=== PATIENT | male | born 1975 | race Caucasian/White ===

== ENCOUNTER → 2017-10-11 | Outpatient (CLI) | payer OTHER ==
--- NOTE | 2017-10-11 10:05 | XR ---
EXAM TYPE: LUMBAR SPINE X RAY SERIES COMPARISON: NONE HISTORY: Lower back pain TECHNIQUE: 4 views are submitted. FINDINGS: Alignment is anatomic. The pedicles are intact. The transverse processes are intact. There is no s pondylolysis or spondylolisthesis. Mild hypertrophic changes noted anteriorly. No compression deform ities. IMPRESSION: 1. Mild hypertrophic changes. If there is concern for disc herniation correlate with MRI.
== END ==
LOC: RADXRMAIN 09:48
PROVIDERS: ATTEND Emergency Medicine
DX: S33.5XXA Sprain of ligaments of lumbar spine, initial encounter (principal)
CPT/HCPCS: 72100

== ENCOUNTER → 2020-09-02 | Outpatient (CLI) | payer OTHER | END | disposition home or self-care (01) | LOC: LABWHC1 13:49 | PROVIDERS: ATTEND Internal Medicine | DX: Z20.828 Contact with and (suspected) exposure to other viral communicable diseases (principal) | CPT/HCPCS: U0003; C9803 ==

== ENCOUNTER 2021-05-19 21:43 | Emergency (ER) | payer OTHER ==
[2021-05-19 21:51] VITALS: RESP 18
[2021-05-19 22:31] LABS: Basophils # (A) 0.1 k/uL (0-0.2); Basophils % (A) 1 %; Eosinophils # (A) 0.2 k/uL (0-0.7); Eosinophils % (A) 2 %; HCT 50.4 % (39.0-53.0); HGB 17.3 gm/dL (13.0-17.5); Lymphocytes # (A) 1.2 k/uL (1.0-4.8); Lymphocytes % (A) 16 %; MCH 33.7 pg (25.0-35.0); MCHC 34.3 g/dL (31.0-37.0); MCV 98.3 fL (80.0-100.0); Mean Platelet Volume 7.1; Monocytes # (A) 0.4 k/uL (0-1.0); Monocytes % (A) 5 %; Neutrophils # (A) 5.5 k/uL (1.3-7.7); Neutrophils % (A) 75 %; Platelet Count 232 k/uL (150-450); RBC 5.12 m/uL (4.30-5.90); RDW 12.5 % (11.5-15.5); WBC 7.4 k/uL (3.8-10.6)
[2021-05-19 22:39] LABS: Appearance,Urine Clear (Clear); Bilirubin,Urine Negative (Negative); Blood,Urine Negative (Negative); Color,Urine Colorless; Glucose,Urine (UA) Negative (Negative); Ketones,Urine Negative (Negative); Leukocyte Esterase,Urine Negative (Negative); Nitrite,Urine Negative (Negative); Protein,Urine Negative (Negative); Specific Gravity,Urine 1.002 (1.001-1.035); Urobilinogen,Urine <2.0 mg/dL (<2.0)
[2021-05-19 22:41] LABS: ALT 30 U/L (4-49); AST 34 U/L (17-59); African American GFR (CKD) >90 (>60 ml/min/1.73 sqM); Albumin 4.8 g/dL (3.5-5.0); Alkaline Phosphatase 81 U/L (38-126); Anion Gap 13 mmol/L; Blood Urea Nitrogen 12 mg/dL (9-20); Calcium 9.8 mg/dL (8.4-10.2); Carbon Dioxide 21 mmol/L (22-30); Chloride 103 mmol/L (98-107); Glucose 96 mg/dL (74-99); Non-African American GFR(CKD) >90 (>60 ml/min/1.73 sqM); Potassium 4.2 mmol/L (3.5-5.1); Sodium 137 mmol/L (137-145); Total Bilirubin 0.4 mg/dL (0.2-1.3); Total Protein 7.7 g/dL (6.3-8.2)
[2021-05-19 22:45] LABS: Alcohol 104 mg/dL
[2021-05-19 22:49] LABS: Amphetamine Screen,Urine Not Detected (NotDetected); Barbiturate Screen,Urine Not Detected (NotDetected); Benzodiazepines Screen,Urine Not Detected (NotDetected); Cocaine Screen,Urine Not Detected (NotDetected); Methadone Screen, Urine Not Detected (NotDetected); Opiate Screen,Urine Not Detected (NotDetected); Oxycodone Screen, Urine Not Detected (NotDetected); Phencyclidine Screen,Urine Not Detected (NotDetected); Tricyclic Antidepressant,Urine Not Detected (NotDetected); Urn Cannabinoid Scrn Detected (NotDetected)
[2021-05-19 22:50] LABS: INR 0.9 (<1.2); Partial Thromboplastin Time 22.2 sec (22.0-30.0); Prothrombin Time 9.6 sec (9.0-12.0)
[2021-05-19] MEDS ORDERED: MORPHINE SULFATE 4 MG/ML SYRINGE IVP STA (23:00)
--- NOTE | 2021-05-19 23:08 | XR ---
EXAMINATION TYPE: XR chest 2V DATE OF EXAM: 05/19/2021 COMPARISON: NONE HISTORY: Fall. Pain TECHNIQUE: 2 views FINDINGS: There is small linear density left lung base. Heart and mediastinum are normal. I see no pl eural effusion or pneumothorax. There are chest leads. IMPRESSION: Mild subsegmental atelectasis left lower lobe. Normal heart.
--- NOTE | 2021-05-19 23:08 | XR ---
EXAMINATION TYPE: XR thoracic spine 2V DATE OF EXAM: 05/19/2021 COMPARISON: None HISTORY: Fell down. Pain. TECHNIQUE: 4 views Thoracic vertebra have normal spacing and alignment. Posterior elements are intact. I see no compress ion fracture. There is no evidence of paraspinal mass. IMPRESSION: Negative thoracic spine exam. No fracture.
--- NOTE | 2021-05-19 23:09 | XR ---
EXAMINATION TYPE: XR pelvis AP view DATE OF EXAM: 05/19/2021 COMPARISON: NONE HISTORY: Pain TECHNIQUE: Single view FINDINGS: Pelvic ring is intact. Proximal femurs and hip joints appear normal. Sacroiliac joints are normal. IMPRESSION: Normal pelvis exam.
--- NOTE | 2021-05-19 23:12 | CT ---
EXAMINATION TYPE: CT brain lyssa wo con DATE OF EXAM: 05/19/2021 COMPARISON: None HISTORY: fell down stairs, pain in neck CT DLP: 1236 mGycm Automated exposure control for dose reduction was used. Images obtained of the brain and cervical spine without contrast. Ventricles have normal size. There is no mass effect nor midline shift. There is no sign of intracran ial hemorrhage. The calvarium is intact. There is no evidence of cerebral edema. There is incomplete aeration of the mastoid sinuses. Sella turcica appears normal. There is some mucosal thickening right maxillary sinus. Cervical vertebra show some mild straightening. Disc spaces are normal. Posterior elements are intact . Facet joints are intact. Prevertebral soft tissues are intact. There is no evidence of a fracture. IMPRESSION: Negative CT scan of the cervical spine. Negative CT scan of the brain. Bilateral mild mastoiditis noted.
--- NOTE | 2021-05-19 23:16 | CT ---
EXAMINATION TYPE: CT facial bones wo con DATE OF EXAM: 05/19/2021 COMPARISON: None HISTORY: Fall. Pain. CT DLP: 1236 mGycm Automated exposure control for dose reduction was used. Images obtained from the bottom of the mandible to the top of the orbits with no contrast. There is some mild mucosal thickening in the right maxillary sinus. The mandibular ring appears intac t. Temporomandibular joints are intact. The zygomatic arches appear normal. Nasal bone appears intact . The orbital margins are intact. There is no evidence of orbital blowout fracture. There is no retro -orbital mass. There is some bilateral mucosal thickening in the mastoid sinuses. I see no focal bone destruction. T here is some debris in the right external auditory canal. IMPRESSION: No fracture. Bilateral mastoiditis. Right side maxillary sinusitis.
[2021-05-19] MEDS ORDERED: traMADol 50 MG STARTER PACK 3 TAB BTL PO STA (23:40)
--- NOTE | 2021-05-19 23:40 | ED ---
Trauma HPI - General Chief Complaint: Trauma Stated Complaint: Fall,head injury Time Seen by Provider: 05/19/21 21:55 Source: patient Mode of arrival: ambulatory Limitations: no limitations - History of Present Illness Initial Comments: Patient is a 45-year-old male presenting to the emergency department after falling down some stairs just prior to arrival. Patient states he was at a friend's a barn when he slipped on the top stair and fell down approximately 20- 25 wooden stairs. According to his friend, he lost consciousness for 1-5 seconds. He is not on blood thinners. Patient states he had been drinking a little bit, about 6 beers today. He is complaining of head pain mostly on his right side, as well as neck pain. He is also complaining of a little bit of mid right-sided back pain. He denies any chest pain, no shortness of breath, no abdominal pain, no nausea or vomiting. He denies any pelvic pain, no pain of his lower extremities. He states both of his shoulders and the back are a little sore but he still able to move them around. Very vision or double vision. He states his overall pain is approximately a 7/10. He denies any drug use. He has no further complaints. - Related Data Allergies Allergy/AdvReac Type Severity Reaction Status Date / Time No Known Allergies Allergy Verified 05/19/21 21:51 Review of Systems ROS Statement: Those systems with pertinent positive or pertinent negative responses have been documented in the HPI. ROS Other: All systems not noted in ROS Statement are negative. Past Medical History Past Medical History: No Reported History History of Any Multi-Drug Resistant Organisms: None Reported Additional Past Surgical History / Comment(s): ear tubes Past Psychological History: No Psychological Hx Reported Smoking Status: Current every day smoker Past Alcohol Use History: Occasional Past Drug Use History: None Reported General Exam - General Exam Comments Initial Comments: GENERAL: Patient is well-developed and well-nourished. Patient is nontoxic and in mild distress. HEAD: Patient has a hematoma noted to the right temporal area, right side of the head as well. He does have some bruising noted to the right congregational area as well. No other hematomas felt. No deformities felt. No signs of basal skull fracture. EYES: Pupils equal round and reactive to light, extraocular movements intact, sclera anicteric, conjunctiva are normal. Eyelids were unremarkable. ENT: TMs normal, nares patent, oropharynx clear without exudates. Moist mucous membranes. NECK: The collar was placed in triage, after c-collar was cleared, patient does have full active range of motion, he does have soreness at the end range. He has tenderness on cervical paraspinals. Supple without lymphadenopathy or JVD. LUNGS: Unlabored respirations. Breath sounds clear to auscultation bilaterally and equal. No wheezes rales or rhonchi. HEART: Regular rate and rhythm without murmurs, rubs or gallops. ABDOMEN: Soft, nontender, normoactive bowel sounds. No guarding, no rebound. No masses appreciated. : Deferred MUSCULOSKELETAL: Normal extremities with adequate strength and normal range of motion, no pitting or edema. No clubbing or cyanosis. Bilateral horticulturalist strength normal. NEUROLOGICAL: Patient is alert and oriented x 3. Motor and sensory are also intact. Cranial nerves II through XII grossly intact. Symmetrical smile. Normal speech, normal gait. PSYCH: Normal mood, normal affect. SKIN: Warm, Dry, normal turgor. He has superficial abrasions noted to the right mid back area, abrasion noted to the right side of the face. Limitations: no limitations Course Vital Signs 05/19/21 05/19/21 05/19/21 21:47 21:57 22:55 Temperature 98.5 F Pulse Rate 89 96 Pulse Rate [ 96 92 Regional Marketing Manager ] Respiratory 18 18 18 Rate Blood Pressure 143/93 135/87 Blood Pressure 135/87 138/92 [Left Arm Sitting] O2 Sat by Pulse 95 99 Oximetry Medical Decision Making - Medical Decision Making Patient is a 45-year-old male presenting after he fell down approximately 20-25 wooden stairs prior to arrival. C-collar was placed in triage. He is not on blood thinners. He did lose consciousness for about 5 seconds. Complaining of a headache, neck pain. No belly pain, no pelvic or lower extremity pain. His vitals are stable upon arrival. Labs are all within normal limits, serum alcohol is 104. X-rays include pelvis, chest and thoracic spine, all are normal, no acute process. CTs of the head, C-spine and facial bones all are within normal limits as well, no acute process. Patient was given morphine for pain. I discussed these findings with the patient. Patient's is here with him and will drive him home. He is stable for discharge. I recommended alternating between Tylenol and Motrin for any discomfort, I will give him a sta rter pack of tramadol to go home with. I also gave him a work note. Strict return parameters were discussed with them and they verbalized understanding. Case discussed with Dr. Barr. - Lab Data Result diagrams: 05/19/21 22:21 05/19/21 22:21 Lab Results 05/19/21 05/19/21 05/19/21 Range/Units 21:15 22:18 22:21 WBC 7.4 (3.8-10.6) k/uL RBC 5.12 (4.30-5.90) m/uL Hgb 17.3 (13.0-17.5) gm/dL Hct 50.4 (39.0-53.0) % MCV 98.3 (80.0-100.0) fL MCH 33.7 (25.0-35.0) pg MCHC 34.3 (31.0-37.0) g/dL RDW 12.5 (11.5-15.5) % Plt Count 232 (150-450) k/uL MPV 7.1 Neutrophils % 75 % Lymphocytes % 16 % Monocytes % 5 % Eosinophils % 2 % Basophils % 1 % Neutrophils # 5.5 (1.3-7.7) k/uL Lymphocytes # 1.2 (1.0-4.8) k/uL Monocytes # 0.4 (0-1.0) k/uL Eosinophils # 0.2 (0-0.7) k/uL Basophils # 0.1 (0-0.2) k/uL PT (9.0-12.0) sec INR (<1.2) APTT (22.0-30.0) sec Sodium (137-145) mmol/L Potassium (3.5-5.1) mmol/L Chloride (98-107) mmol/L Carbon Dioxide (22-30) mmol/L Anion Gap mmol/L BUN (9-20) mg/dL Creatinine (0.66-1.25) mg/dL Est GFR (CKD-EPI)AfAm (>60 ml/min/1.73 sqM) Est GFR (CKD-EPI)NonAf (>60 ml/min/1.73 sqM) Glucose (74-99) mg/dL Calcium (8.4-10.2) mg/dL Total Bilirubin (0.2-1.3) mg/dL AST (17-59) U/L ALT (4-49) U/L Alkaline Phosphatase (38-126) U/L Troponin I (0.000-0.034) ng/mL Total Protein (6.3-8.2) g/dL Albumin (3.5-5.0) g/dL Urine Color Urine Appearance (Clear) Urine pH (5.0-8.0) Ur Specific [place] (1.001-1.035) Urine Protein (Negative) Urine Glucose (UA) (Negative) Urine Ketones (Negative) Urine Blood (Negative) Urine Nitrite (Negative) Urine Bilirubin (Negative) Urine Urobilinogen (<2.0) mg/dL Ur Leukocyte Esterase (Negative) Urine Opiates Screen (NotDetected) Ur Oxycodone Screen (NotDetected) Urine Methadone Screen (NotDetected) Ur Propoxyphene Screen (NotDetected) Ur Barbiturates Screen (NotDetected) U Tricyclic Antidepress (NotDetected) Ur Phencyclidine Scrn (NotDetected) Ur Amphetamines Screen (NotDetected) U Methamphetamines Scrn (NotDetected) U Benzodiazepines Scrn (NotDetected) Urine Cocaine Screen (NotDetected) U Marijuana (THC) Screen (NotDetected) Serum Alcohol mg/dL Blood Type AB Positive Blood Type Confirm AB Positive Blood Type Recheck No Previous Record Bld Type Recheck Status CABO Indicated Antibody Screen NEGATIVE Spec Expiration Date 05/22/2021231705/19/21 05/19/21 05/19/21 Range/Units 22:21 22:21 22:21 WBC (3.8-10.6) k/uL RBC (4.30-5.90) m/uL Hgb (13.0-17.5) gm/dL Hct (39.0-53.0) % MCV (80.0-100.0) fL MCH (25.0-35.0) pg MCHC (31.0-37.0) g/dL RDW (11.5-15.5) % Plt Count (150-450) k/uL MPV Neutrophils % % Lymphocytes % % Monocytes % % Eosinophils % % Basophils % % Neutrophils # (1.3-7.7) k/uL Lymphocytes # (1.0-4.8) k/uL Monocytes # (0-1.0) k/uL Eosinophils # (0-0.7) k/uL Basophils # (0-0.2) k/uL PT (9.0-12.0) sec INR (<1.2) APTT (22.0-30.0) sec Sodium 137 (137-145) mmol/L Potassium 4.2 (3.5-5.1) mmol/L Chloride 103 (98-107) mmol/L Carbon Dioxide 21 L (22-30) mmol/L Anion Gap 13 mmol/L BUN 12 (9-20) mg/dL Creatinine 0.95 (0.66-1.25) mg/dL Est GFR (CKD-EPI)AfAm >90 (>60 ml/min/1.73 sqM) Est GFR (CKD-EPI)NonAf >90 (>60 ml/min/1.73 sqM) Glucose 96 (74-99) mg/dL Calcium 9.8 (8.4-10.2) mg/dL Total Bilirubin 0.4 (0.2-1.3) mg/dL AST 34 (17-59) U/L ALT 30 (4-49) U/L Alkaline Phosphatase 81 (38-126) U/L Troponin I <0.012 (0.000-0.034) ng/mL Total Protein 7.7 (6.3-8.2) g/dL Albumin 4.8 (3.5-5.0) g/dL Urine Color Colorless Urine Appearance Clear (Clear) Urine pH 5.0 (5.0-8.0) Ur Specific [place] 1.002 (1.001-1.035) Urine Protein Negative (Negative) Urine Glucose (UA) Negative (Negative) Urine Ketones Negative (Negative) Urine Blood Negative (Negative) Urine Nitrite Negative (Negative) Urine Bilirubin Negative (Negative) Urine Urobilinogen <2.0 (<2.0) mg/dL Ur Leukocyte Esterase Negative (Negative) Urine Opiates Screen Not Detected (NotDetected) Ur Oxycodone Screen Not Detected (NotDetected) Urine Methadone Screen Not Detected (NotDetected) Ur Propoxyphene Screen Not Detected (NotDetected) Ur Barbiturates Screen Not Detected (NotDetected) U Tricyclic Antidepress Not Detected (NotDetected) Ur Phencyclidine Scrn Not Detected (NotDetected) Ur Amphetamines Screen Not Detected (NotDetected) U Methamphetamines Scrn Not Detected (NotDetected) U Benzodiazepines Scrn Not Detected (NotDetected) Urine Cocaine Screen Not Detected (NotDetected) U Marijuana (THC) Screen Detected H (NotDetected) Serum Alcohol 104 mg/dL Blood Type Blood Type Confirm Blood Type Recheck Bld Type Recheck Status Antibody Screen Spec Expiration Date 05/19/21 Range/Units 22:27 WBC (3.8-10.6) k/uL RBC (4.30-5.90) m/uL Hgb (13.0-17.5) gm/dL Hct (39.0-53.0) % MCV (80.0-100.0) fL MCH (25.0-35.0) pg MCHC (31.0-37.0) g/dL RDW (11.5-15.5) % Plt Count (150-450) k/uL MPV Neutrophils % % Lymphocytes % % Monocytes % % Eosinophils % % Basophils % % Neutrophils # (1.3-7.7) k/uL Lymphocytes # (1.0-4.8) k/uL Monocytes # (0-1.0) k/uL Eosinophils # (0-0.7) k/uL Basophils # (0-0.2) k/uL PT 9.6 (9.0-12.0) sec INR 0.9 (<1.2) APTT 22.2 (22.0-30.0) sec Sodium (137-145) mmol/L Potassium (3.5-5.1) mmol/L Chloride (98-107) mmol/L Carbon Dioxide (22-30) mmol/L Anion Gap mmol/L BUN (9-20) mg/dL Creatinine (0.66-1.25) mg/dL Est GFR (CKD-EPI)AfAm (>60 ml/min/1.73 sqM) Est GFR (CKD-EPI)NonAf (>60 ml/min/1.73 sqM) Glucose (74-99) mg/dL Calcium (8.4-10.2) mg/dL Total Bilirubin (0.2-1.3) mg/dL AST (17-59) U/L ALT (4-49) U/L Alkaline Phosphatase (38-126) U/L Troponin I (0.000-0.034) ng/mL Total Protein (6.3-8.2) g/dL Albumin (3.5-5.0) g/dL Urine Color Urine Appearance (Clear) Urine pH (5.0-8.0) Ur Specific [place] (1.001-1.035) Urine Protein (Negative) Urine Glucose (UA) (Negative) Urine Ketones (Negative) Urine Blood (Negative) Urine Nitrite (Negative) Urine Bilirubin (Negative) Urine Urobilinogen (<2.0) mg/dL Ur Leukocyte Esterase (Negative) Urine Opiates Screen (NotDetected) Ur Oxycodone Screen (NotDetected) Urine Methadone Screen (NotDetected) Ur Propoxyphene Screen (NotDetected) Ur Barbiturates Screen (NotDetected) U Tricyclic Antidepress (NotDetected) Ur Phencyclidine Scrn (NotDetected) Ur Amphetamines Screen (NotDetected) U Methamphetamines Scrn (NotDetected) U Benzodiazepines Scrn (NotDetected) Urine Cocaine Screen (NotDetected) U Marijuana (THC) Screen (NotDetected) Serum Alcohol mg/dL Blood Type Blood Type Confirm Blood Type Recheck Bld Type Recheck Status Antibody Screen Spec Expiration Date - EKG Data EKG Comments: Normal sinus rhythm, normal ECG, no signs of acute process. Ventricular rate 97, SC interval 188, QT 344. Disposition Clinical Impression: Fall down stairs, Concussion, Hematoma of occipital surface of head, Neck pain, Thoracic back pain Disposition: HOME SELF-CARE Condition: Stable Instructions (If sedation given, give patient instructions): Concussion (ED) Additional Instructions: Please return to the Emergency Department if symptoms worsen or any other concerns. Recommend alternating between Tylenol and ibuprofen for discomfort. Lots of rest, limit up close activity such as reading, phone usage to rest your brain. Please follow-up with your primary care physician. Is patient prescribed a controlled substance at d/c from ED?: No Referrals: Asuncion Boss MD [Primary Care Provider] - 1-2 days Time of Disposition: 23:40
[2021-05-20 00:18] VITALS: BP 127/80; PULSE 85; TEMP 97.6
== END 2021-05-19 23:59 | disposition home or self-care (01) ==
LOC: EC 21:43
DX: S06.0X1A Concussion with loss of consciousness of 30 minutes or less, initial encounter (principal); S00.03XA Contusion of scalp, initial encounter; S20.411A Abrasion of right back wall of thorax, initial encounter; M54.2 Cervicalgia; F17.200 Nicotine dependence, unspecified, uncomplicated; W10.9XXA Fall (on) (from) unspecified stairs and steps, initial encounter
CPT/HCPCS: 36415; 93005; 86900; 86901; 80053; 84484; 85025; 85610; 85730; 86850; 81003; 80306; 80320; 72070; 72170; 71046; 72125; 70486; 70450; 96374; 99285; J2270

== ENCOUNTER 2025-01-28 22:29 | Inpatient (IN) | payer OTHER ==
[2025-01-28 23:21] LABS: Basophils # (A) 0.08 10*3/uL (0.00-0.10); Basophils % (A) 0.4 %; Eosinophils # (A) 0.01 10*3/uL (0.04-0.35); HCT 48.8 % (39.6-50.0); HGB 17.3 g/dL (13.0-17.0); Lymphocytes # (A) 1.24 10*3/uL (0.90-5.00); Lymphocytes % (A) 5.8 %; MCH 33.4 pg (27.0-32.0); MCHC 35.5 g/dL (32.0-37.0); MCV 94.2 fL (80.0-97.0); Mean Platelet Volume 9.8 fL (9.5-12.2); Monocytes # (A) 0.76 10*3/uL (0.20-1.00); Monocytes % (A) 3.6 %; Neutrophils # (A) 19.03 10*3/uL (1.80-7.70); Neutrophils % (A) 89.8 %; Platelet Count 314 10*3/uL (140-440); RBC 5.18 10*6/uL (4.40-5.60); RDW 12.2 % (11.5-14.5); WBC 21.21 10*3/uL (4.50-10.00)
--- NOTE | 2025-01-28 23:27 | XR ---
EXAMINATION TYPE: XR KUB DATE OF EXAM: 01/28/2025 11:11 PM COMPARISON: None CLINICAL INDICATION: Male, 49 years old with history of abdominal pain; [facility] TECHNIQUE: One radiographic view of the abdomen was obtained. FINDINGS: The bowel gas pattern is nonspecific without dilated loops of small or large bowel. . Fecal material and gas are demonstrated throughout the colon and rectum. There is no evidence for organome marcelino or pneumoperitoneum. No acute osseous process. No abnormal calcifications are present. IMPRESSION: Nonspecific bowel gas pattern without radiographic evidence for acute process. [facility], , 01/28/2025 11:25 PM
[2025-01-28 23:33] LABS: ALT 42 U/L (4-49); AST 32 U/L (17-59); African American GFR (CKD) >90 (>60 ml/min/1.73 sqM); Albumin 4.5 g/dL (3.5-5.0); Alkaline Phosphatase 97 U/L (38-126); Amylase 30 U/L (30-110); Anion Gap 11 mmol/L; Blood Urea Nitrogen 6 mg/dL (9-20); Calcium 9.9 mg/dL (8.4-10.2); Carbon Dioxide 21 mmol/L (22-30); Chloride 104 mmol/L (98-107); Glucose 106 mg/dL (74-99); Lipase 46 U/L (23-300); Non-African American GFR(CKD) >90 (>60 ml/min/1.73 sqM); Potassium 4.3 mmol/L (3.5-5.1); Sodium 136 mmol/L (137-145); Total Bilirubin 1.1 mg/dL (0.2-1.3); Total Protein 7.5 g/dL (6.3-8.2)
--- NOTE | 2025-01-28 23:58 | ED ---
General Adult HPI - General Chief complaint: Abdominal Pain Stated complaint: abd pain Time Seen by Provider: 01/28/25 23:29 Source: patient, RN notes reviewed Mode of arrival: ambulatory - History of Present Illness Initial comments: 49-year-old male presents to the emergency department for evaluation of abdominal pain. Patient states that this started at 12 PM today. He notes that the pain was in his right lower abdomen. He notes that the pain has started to spread to more of his abdomen. He admits to nausea without vomiting. Does endorse diarrhea. Denies any known fever. Admits to chills. Denies any prior abdominal surgery or past medical history. - Related Data Home Medications Medication Instructions Recorded Confirmed Rosuvastatin [Crestor] 10 mg PO HS 01/29/25 01/29/25 tadalafiL [Cialis] 10 mg PO HS 01/29/25 01/29/25 Previous Rx's Medication Instructions Recorded Cyclobenzaprine [Flexeril] 5 mg PO TID PRN #21 tablet 01/30/25 Sennosides/Docusate Sodium 1 each PO DAILY #7 tab 01/30/25 [Senna-S 8.6-50 mg Tablet] cefuroxime axetiL [Ceftin] 500 mg PO BID #14 tab 01/30/25 metroNIDAZOLE [Flagyl] 500 mg PO TID #21 tab 01/30/25 polyethylene glycoL 3350 [Miralax] 17 gm PO DAILY #7 packet 01/30/25 Allergies Allergy/AdvReac Type Severity Reaction Status Date / Time No Known Allergies Allergy Verified 01/29/25 07:12 Review of Systems ROS Statement: Those systems with pertinent positive or pertinent negative responses have been documented in the HPI. ROS Other: All systems not noted in ROS Statement are negative. Past Medical History Past Medical History: No Reported History History of Any Multi-Drug Resistant Organisms: None Reported Additional Past Surgical History / Comment(s): ear tubes Past Psychological History: No Psychological Hx Reported Smoking Status: Current every day smoker Past Alcohol Use History: Occasional Past Drug Use History: None Reported - Past Family History Father History Unknown: Yes Mother Family Medical History: COPD Additional Family Medical History / Comment(s): lupus arthritis, at age 74 General Exam Limitations: no limitations General appearance: alert, in no apparent distress Head exam: Present: atraumatic, normocephalic, normal inspection Eye exam: Present: normal appearance, PERRL, EOMI. Absent: scleral icterus, conjunctival injection, periorbital swelling ENT exam: Present: normal exam, mucous membranes moist Respiratory exam: Present: normal lung sounds bilaterally. Absent: respiratory distress, wheezes, rales, rhonchi, stridor Cardiovascular Exam: Present: regular rate, normal rhythm, normal heart sounds. Absent: systolic murmur, diastolic murmur, rubs, gallop, clicks GI/Abdominal exam: Present: distended, tenderness (Right lower quadrant) Extremities exam: Present: normal inspection, full ROM, normal capillary refill. Absent: tenderness, pedal edema, joint swelling, calf tenderness Back exam: Present: normal inspection Neurological exam: Present: alert, oriented X3 Psychiatric exam: Present: normal affect, normal mood Skin exam: Present: warm, dry, intact, normal color. Absent: rash Course Vital Signs 01/28/25 01/29/25 01/29/25 22:52 03:03 06:31 Temperature 99.5 F 98.3 F Pulse Rate 115 H 65 90 Respiratory 20 18 16 Rate Blood Pressure 114/77 111/69 93/57 O2 Sat by Pulse 96 91 L 92 L Oximetry Medical Decision Making - Medical Decision Making Was pt. sent in by a medical professional or institution (YULIANA Craven, FOOT ORTHOPEDIST, urgent care, hospital, or senior care...) When possible be specific @ -No Did you speak to anyone other than the patient for history (EMS, parent, family, police, friend...)? What history was obtained from this source @ -No Did you review nursing and triage notes (agree or disagree)? Why? @ -I reviewed and agree with nursing and triage notes Were old charts reviewed (outside hosp., previous admission, EMS record, old EKG, old radiological studies, urgent care reports/EKG's, senior care records)? Report findings @ -No old charts were reviewed Differential Diagnosis (chest pain, altered mental status, abdominal pain women, abdominal pain men, vaginal bleeding, weakness, fever, dyspnea, syncope, headache, dizziness, GI bleed, back pain, seizure, CVA, palpatations, mental health, musculoskeletal)? @ -Differential Abdominal Pain Men: Appendicitis, cholecystitis, diverticulosis, ischemic bowel, pancreatitis, hepatitis, UTI, gastroenteritis, AAA, incarcerated hernia, bowel obstruction, constipation, inflammatory bowel, hepatitis, peptic ulcer disease, splenic infarction, perforated viscus, testicular torsion, this is not meant to be an all-inclusive list EKG interpreted by me (3pts min.). @ -None X-rays interpreted by me (1pt min.). @ -KUB shows nonspecific bowel gas pattern CT interpreted by me (1pt min.). @ -CT abdomen pelvis shows colitis/diverticulitis of the sigmoid colon which extends rightward across the midline, no organizing fluid collection or free air, normal appendix U/S interpreted by me (1pt. min.). @ -None done What testing was considered but not performed or refused? (CT, X-rays, U/S, labs)? Why? @ -None What meds were considered but not given or refused? Why? @ -None Did you discuss the management of the patient with other professionals (amina scott i.e. , PA, FOOT ORTHOPEDIST, lab, RT, psych nurse, social contact worker, team automobile assembler, teacher, senior vice president and chief information officer, embedded case manager)? Give summary @ -Management discussed with Was smoking cessation discussed for >3mins.? @ -No Was critical care preformed (if so, how long)? @ -No Were there social determinants of health that impacted care today? How? (Homelessness, low income, unemployed, alcoholism, drug addiction, t ransportation, low edu. Level, literacy, decrease access to med. care, [facility], rehab)? @ -No Was there de-escalation of care discussed even if they declined (Discuss DNR or withdrawal of care, Hospice)? DNR status @ -No What co-morbidities impacted this encounter? (DM, HTN, Smoking, COPD, CAD, Cance r, CVA, ARF, Chemo, Hep., AIDS, mental health diagnosis, sleep apnea, morbid obesity)? @ -None Was patient admitted / discharged? Hospital course, mention meds given and route, prescriptions, significant lab abnormalities, going to OR and other pertinent info. @ -Admitted. Patient presented the emergency department for evaluation of abdominal pain.Laboratory studies are significant for leukocytosis at 21.21, hemoglobin 17.3; CMP on actionable, no significant lactic acidosis. KUB x-ray was obtained revealing nonspecific bowel gas pattern. A CT of the abdomen pelvis was obtained which showed colitis/diverticulitis of the sigmoid colon. Patient was administered Rocephin and Flagyl in the emergency department. He will be admitted for observation for pain control and IV antibiotics. He is understanding agreeable with this plan. Patient stable at time of admission. Case discussed with Dr. Ferrer. Undiagnosed new problem with uncertain prognosis? @ -No Drug Therapy requiring intensive monitoring for toxicity (Heparin, Nitro, Insulin, Cardizem)? @ -No Were any procedures done? @ -No Diagnosis/symptom? @ -Diverticulitis Acute, or Chronic, or Acute on Chronic? @ -Acute Uncomplicated (without systemic symptoms) or Complicated (systemic symptoms)? @ -Complicated Side effects of treatment? @ -No Exacerbation, Progression, or Severe Exacerbation? @ -No Poses a threat to life or bodily function? How? (Chest pain, [place], [place], pneumonia, PE, COPD, DKA, ARF, appy, cholecystitis, CVA, Diverticulitis, Homicidal, Suicidal, threat to staff... and all critical care pts) @ -No - Lab Data Result diagrams: 01/30/25 04:36 01/30/25 04:36 Lab Results 01/28/25 01/28/25 01/28/25 Range/Units 22:57 23:01 23:01 WBC 21.21 H (4.50-10.00) 10*3/uL RBC 5.18 (4.40-5.60) 10*6/uL Hgb 17.3 H (13.0-17.0) g/dL Hct 48.8 (39.6-50.0) % MCV 94.2 (80.0-97.0) fL MCH 33.4 H (27.0-32.0) pg MCHC 35.5 (32.0-37.0) g/dL Plt Count 314 (140-440) 10*3/uL MPV 9.8 (9.5-12.2) fL Immature Gran % (Auto) 0.4 % Neutrophils % 89.8 % Lymphocytes % 5.8 % Monocytes % 3.6 % Eosinophils % 0.0 % Basophils % 0.4 % Immature Gran # 0.09 H (0.00-0.04) 10*3/uL Neutrophils # 19.03 H (1.80-7.70) 10*3/uL Lymphocytes # 1.24 (0.90-5.00) 10*3/uL Monocytes # 0.76 (0.20-1.00) 10*3/uL Eosinophils # 0.01 L (0.04-0.35) 10*3/uL Basophils # 0.08 (0.00-0.10) 10*3/uL Sodium 136 L (137-145) mmol/L Potassium 4.3 (3.5-5.1) mmol/L Chloride 104 (98-107) mmol/L Carbon Dioxide 21 L (22-30) mmol/L Anion Gap 11 mmol/L BUN 6 L (9-20) mg/dL Creatinine 0.79 (0.66-1.25) mg/dL Est GFR (CKD-EPI)AfAm >90 (>60 ml/min/1.73 sqM) Est GFR (CKD-EPI)NonAf >90 (>60 ml/min/1.73 sqM) Glucose 106 H (74-99) mg/dL Plasma Lactic Acid Austyn (0.7-2.0) mmol/L Calcium 9.9 (8.4-10.2) mg/dL Total Bilirubin 1.1 (0.2-1.3) mg/dL AST 32 (17-59) U/L ALT 42 (4-49) U/L Alkaline Phosphatase 97 (38-126) U/L Total Protein 7.5 (6.3-8.2) g/dL Albumin 4.5 (3.5-5.0) g/dL Amylase 30 (30-110) U/L Lipase 46 (23-300) U/L Urine Color Colorless Urine Appearance Clear (Clear) Urine pH 5.5 (5.0-8.0) Ur Specific Allison 1.010 (1.001-1.035) Urine Protein Negative (Negative) Urine Glucose (UA) Negative (Negative) Urine Ketones Trace H (Negative) Urine Blood Negative (Negative) Urine Nitrite Negative (Negative) Urine Bilirubin Negative (Negative) Urine Urobilinogen <2.0 (<2.0) mg/dL Ur Leukocyte Esterase Negative (Negative) 01/28/25 Range/Units 23:01 WBC (4.50-10.00) 10*3/uL RBC (4.40-5.60) 10*6/uL Hgb (13.0-17.0) g/dL Hct (39.6-50.0) % MCV (80.0-97.0) fL MCH (27.0-32.0) pg MCHC (32.0-37.0) g/dL Plt Count (140-440) 10*3/uL MPV (9.5-12.2) fL Immature Gran % (Auto) % Neutrophils % % Lymphocytes % % Monocytes % % Eosinophils % % Basophils % % Immature Gran # (0.00-0.04) 10*3/uL Neutrophils # (1.80-7.70) 10*3/uL Lymphocytes # (0.90-5.00) 10*3/uL Monocytes # (0.20-1.00) 10*3/uL Eosinophils # (0.04-0.35) 10*3/uL Basophils # (0.00-0.10) 10*3/uL Sodium (137-145) mmol/L Potassium (3.5-5.1) mmol/L Chloride (98-107) mmol/L Carbon Dioxide (22-30) mmol/L Anion Gap mmol/L BUN (9-20) mg/dL Creatinine (0.66-1.25) mg/dL Est GFR (CKD-EPI)AfAm (>60 ml/min/1.73 sqM) Est GFR (CKD-EPI)NonAf (>60 ml/min/1.73 sqM) Glucose (74-99) mg/dL Plasma Lactic Acid Austyn 1.0 (0.7-2.0) mmol/L Calcium (8.4-10.2) mg/dL Total Bilirubin (0.2-1.3) mg/dL AST (17-59) U/L ALT (4-49) U/L Alkaline Phosphatase (38-126) U/L Total Protein (6.3-8.2) g/dL Albumin (3.5-5.0) g/dL Amylase (30-110) U/L Lipase (23-300) U/L Urine Color Urine Appearance (Clear) Urine pH (5.0-8.0) Ur Specific Allison (1.001-1.035) Urine Protein (Negative) Urine Glucose (UA) (Negative) Urine Ketones (Negative) Urine Blood (Negative) Urine Nitrite (Negative) Urine Bilirubin (Negative) Urine Urobilinogen (<2.0) mg/dL Ur Leukocyte Esterase (Negative) Disposition Clinical Impression: Diverticulitis Disposition: ADMITTED IP TO THIS HOSP Condition: Stable Is patient prescribed a controlled substance at d/c from ED?: No
[2025-01-29] MEDS: MORPHINE SULFATE 4 MG/ML SYRINGE IVP STA (00:11)
[2025-01-29] MEDS: SODIUM CHLORIDE 0.9% 1,000 ML IV ONE (00:11)
--- NOTE | 2025-01-29 00:29 | CT ---
EXAMINATION TYPE: CT abdomen pelvis w con DATE OF EXAM: 01/29/2025 12:11 AM COMPARISON: None. CLINICAL INDICATION: Male, 49 years old with history of abd pain, RLQ; LRQ Abdominal pain that starte d around noon with N/V and SoB. Diarrhea for the last 1-2 days TECHNIQUE: Axial CT abdomen pelvis w con;Sagittal and coronal reformats were created on a separate w orkstation. Contrast used:100mL mL of Isovue 300 with IV Contrast, (none if empty) Oral contrast used: without Oral Contrast (none if empty) CT DLP: 2181 mGycm, Automated exposure control for dose reduction was used. FINDINGS: LOWER CHEST: Unremarkable ABDOMEN LIVER: Diffusely hypoattenuating parenchyma. GALLBLADDER AND BILE DUCTS: Unremarkable. PANCREAS: Unremarkable. SPLEEN: Unremarkable. ADRENAL GLANDS: Unremarkable. KIDNEYS AND URETERS: No evidence of hydronephrosis or obstructing renal calculus. The ureters are unr emarkable. PELVIS BLADDER: No evidence for wall thickening or mass given limitations of exam. REPRODUCTIVE: Unremarkable. ABDOMEN & PELVIS STOMACH AND BOWEL: There are colonic diverticula present, a few of which have fat stranding changes a nd inflammation in the right lower abdomen with redundant sigmoid colon present. Mild circumferential wall thickening noted within the right lower quadrant mayo. No organizing fluid collection or evide nce of pneumoperitoneum. No evidence of bowel obstruction. The appendix is normal. PERITONEUM/RETROPERITONEUM: No evidence of pneumoperitoneum or free fluid. VASCULATURE: No evidence of aortic aneurysm. MUSCULOSKELETAL: No acute osseous abnormalities. Mild disc degeneration changes are present throughou t the thoracolumbar spine. LYMPH NODES: No gross evidence for lymphadenopathy. SOFT TISSUE/ABDOMINAL WALL: Unremarkable IMPRESSION: 1. Colitis/diverticulitis of the sigmoid colon which extends rightward across midline. No organizing fluid collection or free air. The appendix is normal. 2. Fat-containing umbilical hernia. 3. Hepatic steatosis [facility], , 01/29/2025 12:26 AM
[2025-01-29] MEDS ORDERED: NALOXONE 0.4 MG/ML 1 ML VIAL IV PRN (02:01)
[2025-01-29] MEDS ORDERED: ONDANSETRON 4 MG/2 ML VIAL IVP PRN (02:01)
[2025-01-29] MEDS: HYDROmorphone 0.5 MG/0.5 ML SYRINGE IVP STA (02:45)
[2025-01-29] MEDS: metroNIDAZOLE-NS PMX 500 MG in SALINE 1 100ML.BAG IVPB STA (03:28)
[2025-01-29 04:39] LABS: Influenza A Not Detected (Not Detectd); Influenza B Not Detected (Not Detectd); RSV Not Detected (Not Detectd)
[2025-01-29] MEDS: LACTATED RINGERS 1,000 ML IV ONE (04:47)
[2025-01-29] MEDS: LACTATED RINGERS 1,000 ML IV SCH (05:45)
[2025-01-29] MEDS: HYDROmorphone 0.5 MG/0.5 ML SYRINGE IVP PRN (05:49)
[2025-01-29 06:35] VITALS: RESP 16
[2025-01-29 07:43] LABS: Appearance,Urine Clear (Clear); Bilirubin,Urine Negative (Negative); Blood,Urine Negative (Negative); Color,Urine Colorless; Glucose,Urine (UA) Negative (Negative); Ketones,Urine Trace (Negative); Leukocyte Esterase,Urine Negative (Negative); Nitrite,Urine Negative (Negative); PH, Urine 5.5 (5.0-8.0); Protein,Urine Negative (Negative); Urobilinogen,Urine <2.0 mg/dL (<2.0)
[2025-01-29] MEDS: PANTOPRAZOLE 40 MG/10 ML VIAL IVP SCH (09:19)
[2025-01-29] MEDS: MORPHINE SULFATE 4 MG/ML SYRINGE IV PRN (12:37)
[2025-01-29] MEDS: metroNIDAZOLE-NS PMX 500 MG in SALINE 1 100ML.BAG IVPB SCH (12:37)
[2025-01-29] MEDS: KETOROLAC 15 MG/ML 1 ML VIAL IVP PRN (14:52)
--- NOTE | 2025-01-29 15:18 | P.HPIM ---
History of Present Illness H&P Date: 01/29/25 History of present illness; Patient is 49-year-old male with hyperlipidemia who presents with abdominal pain. Patient states pain began yesterday afternoon and right lower quadrant. He states that pain was worsened by movement and began to progress to a sharp pain. He denies bowel movement since that time and denies blood in stool. Patient has no previous occurrences of similar pain or diverticulitis. No recent change in diet. Regularly has 2-3 bowel movements daily. No known GI history. He is denying chest pain, palpitations, shortness of breath, diarrhea, weakness, dizziness, dysuria. Spoke with the ER physician, patient admission was accepted by internal medicine service for treatment. REVIEW OF SYSTEMS: Pertinent positives and negatives noted in HPI. PHYSICAL EXAMINATION: Vitals reviewed GENERAL: Resting comfortably in bed. EYES: PERRL, no scleral injection or icterus. No vision loss HENT: Normocephalic, atraumatic, hearing grossly intact, moist mucous membranes NECK: No tracheal deviation, full range of motion. CARDIOVASCULAR: S1 and S2 present. No murmurs, rubs, or gallops. PULMONARY: Chest is clear to auscultation, no wheezing, rhonchi, or crackles. ABDOMEN: Soft, LLQ rebound tenderness, nondistended. No palpable organomegaly. MUSCULOSKELETAL: No apparent joint swelling and deformities. EXTREMITIES: No apparent cyanosis, clubbing. No pedal edema. NEUROLOGICAL: Alert and oriented. Gross neurological examination with no radha arent focal deficits. SKIN: No apparent rashes. ER FINDINGS: Labs WBC 21.2, hemoglobin 17.3, sodium 136, bicarb 21, BUN 6, glucose 106, lactic acid is WNL, ambulates and lipase are WNL, UA significant for trace ketones, respiratory panel negative KUB independently interpreted as nonspecific bowel gas pattern without evidence for acute process CT abdomen pelvis with contrast interpreted as colitis/diverticulitis of the sigmoid colon which extends right across the midline. No organizing fluid c ollection or free air. Normal appendix. Fat-containing umbilical hernia, hepatic steatosis. Assessment and Plan: In summary, patient is 49-year-old male with hyperlipidemia who presents with abdominal pain. #Sepsis due to acute Sigmoid Diverticulitis CT AP w/ contrast showed acute diverticulitis Given fluid resuscitation Begin Continue LR Begin IV Protonix 40 mg daily Begin Zofran 4 mg IVP every 8 hour as needed for nausea vomiting Morphine 4 mg IV every 4 hours as needed for severe pain, Toradol 50 mg IVP every 6 hours as needed for pain Started on Flagyl 500 mg IV every 8 hour, Rocephin 2 g daily Clear liquid diet to soft diet Monitor CBC and BMP Chronic Medical Conditions: Hyperlipidemia Resume home medications DVT ppx: Subq Lovenox 40 meq daily Code status: Full code F: IV fluids at 75 mL/h E: Replete as needed N: CLD dissolved A: Ambulatory Anticipated discharge place: Home Anticipated discharge time: 2 to 3 days Dictation was produced using [employer] dictation software. Please excuse any grammatical, word or spelling errors. Past Medical History Past Medical History: No Reported History History of Any Multi-Drug Resistant Organisms: None Reported Additional Past Surgical History / Comment(s): ear tubes Past Psychological History: No Psychological Hx Reported Smoking Status: Current every day smoker Past Alcohol Use History: Occasional Past Drug Use History: None Reported - Past Family History Father History Unknown: Yes Mother Family Medical History: COPD Additional Family Medical History / Comment(s): lupus arthritis, at age 74 Medications and Allergies Home Medications Medication Instructions Recorded Confirmed Type Rosuvastatin [Crestor] 10 mg PO HS 01/29/25 01/29/25 History tadalafiL [Cialis] 10 mg PO HS 01/29/25 01/29/25 History Allergies Allergy/AdvReac Type Severity Reaction Status Date / Time No Known Allergies Allergy Verified 01/29/25 07:12 Physical Exam Vitals: Vital Signs Temp Pulse Pulse Resp BP BP Pulse Ox 01/29/25 08:30 16 01/29/25 08:20 98.5 F 92 16 121/71 93 L 01/29/25 06:31 90 16 93/57 92 L 01/29/25 03:03 98.3 F 65 18 111/69 91 L 01/28/25 22:52 99.5 F 115 H 20 114/77 96 Intake and Output 01/28/25 01/29/25 01/29/25 22:59 06:59 14:59 Other: Weight 131.542 kg Results CBC & Chem 7: 01/28/25 23:01 01/28/25 23:01 Labs: Abnormal Lab Results - Last 24 Hours (Table) 01/28/25 01/28/25 01/28/25 Range/Units 22:57 23:01 23:01 WBC 21.21 H (4.50-10.00) 10*3/uL Hgb 17.3 H (13.0-17.0) g/dL MCH 33.4 H (27.0-32.0) pg Immature Gran # 0.09 H (0.00-0.04) 10*3/uL Neutrophils # 19.03 H (1.80-7.70) 10*3/uL Eosinophils # 0.01 L (0.04-0.35) 10*3/uL Sodium 136 L (137-145) mmol/L Carbon Dioxide 21 L (22-30) mmol/L BUN 6 L (9-20) mg/dL Glucose 106 H (74-99) mg/dL Urine Ketones Trace H (Negative)
[2025-01-29] MEDS: ATORVASTATIN 20 MG TAB PO SCH (20:21)
[2025-01-29] MEDS ORDERED: NON FORMULARY DRUG (Tadalafil [Cialis] 10 MG Tablet) PO SCH (21:00)
[2025-01-30 08:17] LABS: Basophils # (A) 0.03 X 10*3/uL (0.00-0.10); Basophils % (A) 0.2 %; Eosinophils # (A) 0.08 X 10*3/uL (0.04-0.35); Eosinophils % (A) 0.6 %; HCT 44.6 % (39.6-50.0); HGB 14.9 g/dL (13.0-17.0); Lymphocytes # (A) 1.09 X 10*3/uL (0.90-5.00); Lymphocytes % (A) 8.3 %; MCH 33.4 pg (27.0-32.0); MCHC 33.4 g/dL (32.0-37.0); Mean Platelet Volume 10.3 FL (9.5-12.2); Monocytes # (A) 0.77 X 10*3/uL (0.20-1.00); Monocytes % (A) 5.9 %; NRBC Per 100 WBC 0 X 10*3/uL (0.00-0.01); Neutrophils # (A) 11.11 X 10*3/uL (1.80-7.70); Neutrophils % (A) 84.6 %; Platelet Count 254 X 10*3/uL (140-440); RBC 4.46 X 10*6/uL (4.40-5.60); RDW 12.5 % (11.5-14.5); WBC 13.13 X 10*3/uL (4.50-10.00)
[2025-01-30 08:22] LABS: BUN/Creat Ratio <5.00 Ratio (12.00-20.00); Blood Urea Nitrogen <3.5 mg/dL (9.0-27.0); Calcium 8.8 mg/dL (8.7-10.3); Chloride 105 mmol/L (96-109); Glucose 109 mg/dL (70-110); Potassium 4.1 mmol/L (3.5-5.5); Sodium 140 mmol/L (135-145)
[2025-01-30] MEDS: PANTOPRAZOLE 40 MG/10 ML VIAL IVP SCH (09:39)
[2025-01-30] MEDS: ENOXAPARIN 40 MG/0.4 ML SYRINGE SQ SCH (09:39)
[2025-01-30] MEDS: cefTRIAXone 2 GM in DEXTROSE 5% IN WATER 50 ML IVPB SCH (09:40)
[2025-01-30 11:44] VITALS: BP 122/69; PULSE 94; TEMP 98.6
--- NOTE | 2025-01-30 13:28 | P.DS ---
Providers Date of admission: 01/29/25 02:03 Expected date of discharge: 01/30/25 Attending physician: Devonte Holloway Primary care physician: Asuncion Boss Hospital Course: Discharge diagnoses; #Sepsis due to acute Sigmoid Diverticulitis Hospital course; History of present illness; Patient is 49-year-old male with hyperlipidemia who presents with abdominal pain. Patient states pain began yesterday afternoon and right lower quadrant. He states that pain was worsened by movement and began to progress to a sharp pain. He denies bowel movement since that time and denies blood in stool. Patient has no previous occurrences of similar pain or diverticulitis. No recent change in diet. Regularly has 2-3 bowel movements daily. No known GI history. He is denying chest pain, palpitations, shortness of breath, diarrhea, weakness, dizziness, dysuria. During stay patient given antibiotic treatment and pain medication for diverticulitis. CT showed acute diverticulitis. Patient discharged home in stable condition. Continue home antibiotics Ceftin and Flagyl for 7 days. Flexeril given for pain can be taken as needed. Senokot and MiraLAX given for constipation, take as needed. Slowly increase diet from soft to solid as tolerated over next few days. Follow-up with PCP. Return to the hospital if symptoms worsen. PHYSICAL EXAMINATION: Vitals reviewed GENERAL: Resting comfortably in bed. EYES: PERRL, no scleral injection or icterus. No vision loss CARDIOVASCULAR: S1 and S2 present. No murmurs, rubs, or gallops. PULMONARY: Chest is clear to auscultation, no wheezing, rhonchi, or crackles. ABDOMEN: Soft, mild LLQ rebound tenderness, nondistended. No palpable organomegaly. MUSCULOSKELETAL: No apparent joint swelling and deformities. EXTREMITIES: No apparent cyanosis, clubbing. No pedal edema. NEUROLOGICAL: Alert and oriented. Gross neurological examination with no apparent focal deficits. Dr. Sams seen patient with resident, present during exam, and agreed with findings. Dictation was produced using [employer] dictation software. please excuse any grammatical, word or spelling errors. Patient Condition at Discharge: Stable Plan - Discharge Summary Discharge Rx Participant: No New Discharge Prescriptions: No Action Rosuvastatin [Crestor] 10 mg PO HS tadalafiL [Cialis] 10 mg PO HS Discharge Medication List Rosuvastatin [Crestor] 10 mg PO HS 01/29/25 [History] tadalafiL [Cialis] 10 mg PO HS 01/29/25 [History] Follow up Appointment(s)/Referral(s): Asuncion Boss MD [Primary Care Provider] - 1-2 days
== END 2025-01-30 13:50 | disposition home or self-care (01) | DRG 872 ==
LOC: EC 22:29 → 6NMEDSUR 01-29 02:02 → OBSVTOIN 01-29 02:03 → 5NMEDONC 01-29 03:31
PROVIDERS: ADMIT Hospitalist; ATTEND Hospitalist
DX: A41.9 Sepsis, unspecified organism (principal); E78.5 Hyperlipidemia, unspecified; K57.32 Diverticulitis of large intestine without perforation or abscess without bleeding; F17.200 Nicotine dependence, unspecified, uncomplicated; K59.00 Constipation, unspecified; Z79.899 Other long term (current) drug therapy; Z28.310 Unvaccinated for COVID-19; Z28.21 Immunization not carried out because of patient refusal
CPT/HCPCS: 36415; 74018; 74177; 80048; 80053; 81003; 82150; 83605; 83690; 85025; 87636; 96361; 96365; 96366; 96367; 96375; 96376; 99285